=== PATIENT | female | born 1985 | race African-American/Black ===

== ENCOUNTER 2016-06-08 08:45 | Emergency (ER) | payer SELFPAY ==
[2016-06-08 09:06] VITALS: BMI 30.4
--- NOTE | 2016-06-08 09:14 | EDPRACDOC ---
- General Information Chief Complaint: Sore Throat Stated Complaint: SORE THROAT Time Seen by Provider: 06/08/16 09:08 Information Source: Patient Home Medications: Home Medications Multivitamin [Multiple Vitamins] 1 tab PO DAILY 09/16/14 Ibuprofen Tablet [Motrin] 800 mg PO TID PRN #30 tab 06/08/16 Allergies/Adverse Reactions: Allergies Allergy/AdvReac Type Severity Reaction Status Date / Time No Known Allergies Allergy Verified 06/08/16 09:05 - History of Present Illness Onset: 2 DAYS HPI: PT COMPLAINS OF SEVERE SORE THROAT, NECK PAIN, FEVER ON MONDAY, NO OTHER COMPLAINTS, STATES TAKING ADVIL WITHOUT RELIEF. Sore Throat Symptoms: Reports: Pain, Hoarse White Spots Location: Denies: Lips, Tongue, Buccal Membrane, Gingiva, Palate, Pharynx, Other Recent: Reports: None Relevant History of: Reports: None Pain Severity: Reports: Severe Urinary Output: Normal Oral Intake: Normal Associated Signs and Symptoms: Reports: Fever. Denies: Chills, Rash, Cough, Nasal Symptoms, Earache, Abdominal Pain ED Past Medical History - History Reviewed Yes Nurses notes reviewed and agree except as marked No Past Medical History: Yes Patient has no past medical history - Patient Medical History Surgical History: Reports: Appendectomy - Social Medical History Smoking Status: Never smoker ETOH: None EDM Review of Systems - Review of Systems Constitutional: Fever. negative: Chills Eyes: negative: Blurred Vision, Double Vision Ears: negative: Drainage, Pain Throat: Pain, Hoarseness, Erythema Nose: negative: Congestion, Discharge Respiratory: negative: Cough, Shortness of Breath, Wheezing Gastrointestinal: negative: Diarrhea, Nausea, Pain, Vomiting Neurological: negative: Dizziness, Headache, Numbness, Weakness - Physical Exam Constitutional: Alert (Awake), No apparent distress Oriented to: Time, Person, Place Last recorded Vital Signs: Last Vital Signs Temp 98.5 F 06/08/16 09:02 Pulse 79 06/08/16 09:02 Resp 18 06/08/16 09:02 BP 147/68 06/08/16 09:02 Pulse Ox 97 06/08/16 09:02 Oxygen Pulse Oxygen Saturation 97 O2 Device Oxygen Flow Rate Fraction of Inspired Oxygen ( FIO2) - HEENT Head: Normal ( normocephalic) Eye Exam: Normal (PERRL, EOMI, Sclera white) Oropharynx: Red Tympanic Membrane: Normal ENT EAC: Normal TMJ: Normal Nose: No Symptoms Reported (septum midline) Neck: Lymphadenopathy. negative: Meningeal Signs - Respiratory/Cardiovascular Respiratory: Normal - CTA (BBS clear to auscultation without adventitious sounds ) Cardiovascular: Normal (RRR without murmur, gallop or rub) - Integumentary Skin: Normal, Warm, Dry Lymphatics: Normal (no adenopathy) - Neurologic Memory Impaired: Normal Motor Function: Normal (Normal tone, Pulses 2+ No cyanosis or edema, FROM) Cranial Nerve: Normal (CN II-X11 intact sensation, strength 5/5) Cerebellar: Normal Mood Description: Normal Perception: Normal - Differential Diagnosis Pharyngitis Streptococcal, Pharyngitis Viral Decision Time to Discharge: 09:14 - Departure Disposition: Home Condition: Stable Final Diagnosis: Acute pharyngitis Instructions: Pharyngitis (ED) Education/Counseling Given To: Patient Education/Counseling Given Regarding: Diagnosis, Treatment, Prognosis, Follow Up Referrals: None,No Provider [Primary Care Provider] - One Week Prescriptions: New Ibuprofen Tablet [Motrin] 800 mg PO TID PRN #30 tab PRN Reason: Pain Continue Multivitamin [Multiple Vitamins] 1 tab PO DAILY Forms: Excuse Note Additional Instructions: REST, DRINK PLENTY OF FLUIDS, GARGLE WITH SALT WATER NEEDED FOR SORE THROAT, USE MOTRIN NEEDED FOR PAIN OR FEVER, RETURN TO THE ED FOR ANY WORSENING SYMPTOMS OR CONCERNS.
[2016-06-08] MEDS ORDERED: PENICILLIN G BENZATHINE 1.2 MIL UNITS TUBEX IM ONE (09:15)
[2016-06-08] MEDS ORDERED: LIDOCAINE 2% VISCOUS ORAL 15 ML PO ONE (09:15)
[2016-06-08 10:27] VITALS: BP 141/87; PULSE 82; TEMP 98.1
== END 2016-06-08 10:40 | disposition home or self-care (01) ==
LOC: ED 08:45
DX: J02.9 Acute pharyngitis, unspecified (principal)
CPT/HCPCS: 96372; 99282; J0561; J2001